=== PATIENT | male | born 1985 | race Caucasian/White ===

== ENCOUNTER 2018-09-08 19:35 | Emergency (ER) | payer OTHER ==
[~2018-09-08] VITALS: Ht 182.9 cm; Wt 73.6 kg
[2018-09-08 19:54] VITALS: Ht 182.9 cm; Wt 73.6 kg
[2018-09-08] MEDS ORDERED: PHENERGAN DM SYR5 ML PO (20:56)
[2018-09-08] MEDS ORDERED: KEFLEX500 MG PO (20:56)
[2018-09-08 21:16] VITALS: BP 111/75
== END 2018-09-08 21:24 | disposition home or self-care (01) ==
LOC: D.ER 19:35
DX: J06.9 Acute upper respiratory infection, unspecified (principal); R05 Cough; R09.89 Other specified symptoms and signs involving the circulatory and respiratory systems

== ENCOUNTER 2018-10-29 20:58 | Emergency (ER) | payer MEDICAID ==
[~2018-10-29] VITALS: Ht 182.9 cm; Wt 73.6 kg
[~2018-10-29 20:58] MED LIST: KEFLEX500 MG PO; PHENERGAN DM SYR5 ML PO
[2018-10-29 21:06] VITALS: Ht 182.9 cm; Wt 73.6 kg
[2018-10-29] MEDS ORDERED: VISTARIL50 MG PO (21:50)
[2018-10-29] MEDS ORDERED: PREDNISONE10 MG PO (21:50)
[2018-10-29 22:04] VITALS: BP 134/78
== END 2018-10-29 22:05 | disposition home or self-care (01) ==
LOC: D.ER 20:58
DX: L23.7 Allergic contact dermatitis due to plants, except food (principal)

== ENCOUNTER 2019-07-18 17:42 | Emergency (ER) | payer OTHER ==
[~2019-07-18] VITALS: Ht 182.9 cm; Wt 72.7 kg
[~2019-07-18 17:42] MED LIST changes: +PREDNISONE10 MG PO; +VISTARIL50 MG PO
[2019-07-18 17:55] VITALS: Ht 182.9 cm; Wt 72.7 kg
[2019-07-18] MEDS ORDERED: FAMOTIDINE10 MG (17:56)
[2019-07-18 18:43] LABS: BASOPHILS 0.4 % (0-2); EOSINOPHILS 3.3 % (0-7); HEMATOCRIT 43.3 % (42.0-54.0); HEMOGLOBIN 14.7 g/dL (13.5-17.5); IMMATURE GRANULOCYTES 0.2 % (0-5); LYMPHOCYTES 28.3 % (15-50); MCH 29.7 pg (26.0-34.0); MCHC 33.9 g/dL (31.0-37.0); MCV 87.5 fL (80.0-100.0); MEAN PLATELET VOLUME 10.6 fL (7.4-10.4); MONOCYTES 7.6 % (2-11); NEUTROPHILS 60.2 % (40-80); PLATELET COUNT 284 10x3/uL (130-400); RBC 4.95 10x6/uL (4.20-6.10); RDW 13.5 % (11.5-14.5); WBC 10.7 10x3/uL (4.8-10.8)
[2019-07-18 19:01] LABS: CALC OSMOLALITY 285 mosm/kg (275-300); CALCIUM 8.7 mg/dL (8.5-10.1); CARBON DIOXIDE 30.5 mmol/L (21.0-32.0); CHLORIDE - SERUM 103 mmol/L (98-107); CREATININE - SERUM 1.1 mg/dL (0.6-1.3); GLUCOSE 121 mg/dL (74-106); POTASSIUM - SERUM 3.8 mmol/L (3.5-5.1); SODIUM 142 mmol/L (136-145); UREA NITROGEN 17 mg/dL (7-18); eGFR NON AFRICAN AMERICAN 81 mL/min (90-120)
[2019-07-18 19:01] LABS: APPEARANCE CLEAR (CLEAR); BILIRUBIN NEGATIVE (NEGATIVE); COLOR YELLOW (YELLOW); GLUCOSE 100 mg/dL (NEGATIVE); KETONE NEGATIVE (NEGATIVE); NITRITE NEGATIVE (NEGATIVE); PROTEIN NEGATIVE (NEGATIVE); UROBILINOGEN NORMAL (NORMAL)
[2019-07-18 19:10] LABS: ALBUMIN 3.7 g/dL (3.4-5.0); ALKALINE PHOSPHATASE 86 U/L (46-116); ALT (SGPT) 22 U/L (10-68); AMYLASE - SERUM 50 U/L (25-115); BILIRUBIN - TOTAL 0.25 mg/dL (0.2-1.3); LIPASE 162 U/L (73-393); PROTEIN - SERUM 7.2 g/dL (6.4-8.2)
[2019-07-18 19:11] LABS: TROPONIN-I < 0.017 ng/mL (0.000-0.060)
[2019-07-18] MEDS ORDERED: MIRALAX17 GM PO (21:15)
[2019-07-18] MEDS ORDERED: BENTYL 20 MG TA20 MG PO (21:15)
[2019-07-18 22:03] VITALS: BP 118/75
== END 2019-07-18 21:33 | disposition home or self-care (01) ==
LOC: D.ER 17:42
PROVIDERS: Family Medicine
DX: K59.00 Constipation, unspecified (principal); R10.9 Unspecified abdominal pain; J44.9 Chronic obstructive pulmonary disease, unspecified; Z72.0 Tobacco use